=== PATIENT | male | born 1955 | race Caucasian/White ===

== ENCOUNTER 2022-04-07 06:24 | Day surgery (SDC) | payer OTHER ==
[~2022-04-07] VITALS: Ht 178 cm; Wt 110.0 kg
[~2022-04-07 06:24] MED LIST: AMIODARONE HCL200 M1 PO; ASCORBIC ACID500 MG PO; CELEBREX **OUT100 MG PO; CO Q-10100 MG PO; ENALAPRIL-HCTZ1 EAC1 PO; ENTRESTO 97 MG1 EACH PO; FEROSUL325 MG PO; LASIX20 MG PO; LOVAZA1 GM PO; METFORMIN HCL500 M3 PO; METOPROLOL SUCC25 MG PO; NEXIUM 40MG CAP40 MG PO; SPIRONOLACTONE25 M1 PO; SYMBICORT 80-10.2 GM INH; TYLENOL ARTHRI650 MG PO; VITAMIN B122500 MC1 PO; XARELTO20 MG PO; ZOCOR20 MG PO
[2022-04-07 07:25] LABS: INR 0.97 (0.9-1.2); PROTHROMBIN TIME 12.6 SECONDS (11.9-13.9)
[2022-04-08 06:30] LABS: BASOPHIL 0.1 % (0-2); EOSINOPHIL 0 % (0-7); HCT 31.7 % (42.0-52.0); HGB 10.1 g/dl (13.2-18.0); LYMPHOCYTE 4.5 % (15-48); MCH 31.3 pg (25.0-31.0); MCHC 31.9 g/dL (32.0-36.0); MCV 98.1 fL (78.0-100.0); MONOCYTE 6.4 % (0-12); MPV 9.8 fL (6.0-9.5); NEUTROPHIL 88.4 % (41-80); NRBC 0; PLT 197 K/uL (150-400); RBC 3.23 M/uL (4.70-6.00); RDW 12.3 % (11.5-14.0); WBC 10.7 K/uL (4.0-10.5)
[2022-04-08 07:17] LABS: CREATININE 0.77 mg/dL (0.67-1.17); POTASSIUM 5.1 mmol/L (3.5-5.1)
[2022-04-08] MEDS ORDERED: NORCO 5-325 TA1 EACH PO (08:36)
== END 2022-04-08 11:30 | disposition home health service (06) ==
LOC: FAS 06:24 → FMS 11:30 → FAS 04-08 11:30
PROVIDERS: Legal Medicine; Nurse Practitioner
DX: M17.12 Unilateral primary osteoarthritis, left knee (principal); M21.162 Varus deformity, not elsewhere classified, left knee; I48.91 Unspecified atrial fibrillation; I10 Essential (primary) hypertension; E11.9 Type 2 diabetes mellitus without complications; E78.5 Hyperlipidemia, unspecified; G89.18 Other acute postprocedural pain; Z79.84 Long term (current) use of oral hypoglycemic drugs; Z79.899 Other long term (current) drug therapy
CPT/HCPCS: 36415; 73560; 80048; 85014; 85018; 85025; 85610; 86850; 86900; 86901; 94010; 94762; 97110; 97116; 97161; 97166; C1713; C1776; J0171; J0697; J1100; J1170; J1200; J1885; J2250; J2270; J2405; J2704; J2795; J3010; J7120